=== PATIENT | female | born 1970 | race Caucasian/White ===

== ENCOUNTER 2018-08-21 23:13 | Emergency (ER) | payer OTHER ==
[2018-08-21] MEDS ORDERED: Sodium Chloride 0.9% 10 ML Syringe FLUSH PRN (23:24)
[2018-08-21] MEDS ORDERED: methylPREDNISolone Sodium Succinate 125 MG/2 ML SDV IVPUSH ONE (23:25)
[2018-08-21] MEDS ORDERED: Ketorolac 30 MG/ML SDV IVPUSH ONE (23:51)
[2018-08-21] MEDS ORDERED: diphenhydrAMINE 50 MG/ML SDV IVPUSH ONE (23:51)
[2018-08-21 23:52] LABS: CHLORIDE,CL 104 mmol/L (98-107); SODIUM,NA 141 mmol/L (136-145)
[2018-08-22] MEDS ORDERED: cefTRIAXone 1 GM in Sodium Chloride 0.9% 100 ML IV ONE (00:01)
--- NOTE | 2018-08-22 01:03 | EDM.PDOC ---
ED HPI GENERAL MEDICAL PROBLEM - General Chief Complaint: ENT Problem Stated Complaint: THROAT PAIN/SWELLING Time Seen by Provider: 08/21/18 23:47 Source of Information: Reports: Patient History Limitations: Reports: No Limitations - History of Present Illness INITIAL COMMENTS - FREE TEXT/NARRATIVE: Patient comes in with complaint of severe sore throat. Pain started gradually this morning. Sudden worsening around 6pm this evening. Took Benadryl, Ibuprofen. No known exposures to illness. Denies fevers/chills. No runny nose. Throat pain is mainly in upper throat, feels swollen, hard to swallow. Feels better sitting up. No cough. No shortness of breath/wheezing. Denies GI or changes. No other pain complaints. No dizziness/weakness/ neuro changes. Denies rash. Denies ear pain. No other complaints on ROS. 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 ED EXAM, ENT - Physical Exam Exam: See Below Exam Limited By: No Limitations General Appearance: Alert, WD/WN, No Apparent Distress Eye Exam: Bilateral Eye: EOMI, PERRL Ears: Normal External Exam, Normal Canal, Hearing Grossly Normal, Normal TMs Nose: Normal Inspection. No: Nasal Deformity, Nasal Discharge, Nasal Swelling Mouth/Throat: Normal Gums, Normal Lips, Pharyngeal Erythema, Throat Pain, Uvular Edema. No: Drooling, Hoarse Voice, Muffled Voice, Perioral Cyanosis, Tongue Swelling, Tonsillar Exudates, Tonsillar Swelling, Uvular Deviation Head: Atraumatic, Normocephalic Neck: Supple, Full Range of Motion, Other (mild discomfort with palpation under jawline bilaterally). No: Lymphadenopathy (L), Lymphadenopathy (R) Respiratory/Chest: No Respiratory Distress, Lungs Clear, Normal Breath Sounds, No Accessory Muscle Use Cardiovascular: Regular Rate, Rhythm, No Murmur GI/Abdominal: Soft, Non-Tender (Female) Exam: Deferred Rectal (Female) Exam: Deferred Extremities: Normal Inspection, Normal Capillary Refill Neurological: Alert, Oriented, CN II-XII Intact, Normal Cognition, Normal Gait, No Motor/Sensory Deficits Psychiatric: Normal Affect, Normal Mood Skin: Warm, Dry, Intact, Normal Color, No Rash Course - Vital Signs Last Recorded V/S: Last Vital Signs Temp 36.6 C 08/21/18 23:14 Pulse 80 08/22/18 02:00 Resp 16 08/22/18 02:00 BP 135/83 08/21/18 23:14 Pulse Ox 98 08/22/18 02:00 - Orders/Labs/Meds Orders: Active Orders 24 hr Category Date Time Status Peripheral IV Care [RC] . DIRECTED Care 08/21/18 23:24 Active Neck Soft Tissue [CR] Stat Exams 08/21/18 23:53 Taken CULTURE STREP A CONFIRMATION [RM] Stat Lab 08/21/18 23:38 Results STREP SCRN A RAPID W CULT CONF [RM] Stat Lab 08/21/18 23:38 Results Peripheral IV Insertion Adult [OM.PC] Routine Oth 08/21/18 23:24 Ordered Labs: Laboratory Tests 08/21/18 08/21/18 Range/Units 23:25 23:25 WBC 10.1 (4.0-10.2) K/uL RBC 4.57 (3.77-5.09) M/uL Hgb 13.5 (11.7-15.5) g/dL Hct 40.2 (34.0-46.0) % MCV 88.0 (84.0-98.0) fL MCH 29.5 (28.2-33.3) pg MCHC 33.6 (31.7-36.0) g/dL RDW 12.4 (11.2-14.1) % Plt Count 279 (150-350) K/uL Neut % (Auto) 58.2 (45.0-80.0) % Lymph % (Auto) 29.9 (10.0-50.0) % Hayes % (Auto) 9.2 (2.0-14.0) % Eos % (Auto) 2.4 (0.0-5.0) % Baso % (Auto) 0.3 (0.0-2.0) % Neut # (Auto) 5.86 (1.40-7.00) K/uL Lymph # (Auto) 3.00 (0.50-3.50) K/uL Hayes # (Auto) 0.92 (0.00-1.00) K/uL Eos # (Auto) 0.24 (0.00-0.50) K/uL Baso # (Auto) 0.03 (0.00-0.20) K/uL Sodium 141 (136-145) mmol/L Potassium 3.7 (3.5-5.1) mmol/L Chloride 104 (98-107) mmol/L Carbon Dioxide 28.2 (21.0-32.0) mmol/L BUN 12 (7-18) mg/dL Creatinine 0.85 (0.51-1.17) mg/dL Est Cr Clr Drug Dosing TNP Estimated GFR (MDRD) > 60 mL/min Glucose 113 H (74-106) mg/dL Calcium 8.8 (8.5-10.1) mg/dL Total Bilirubin 0.2 (0.2-1.0) mg/dL AST 18 (15-37) U/L ALT 27 (12-78) U/L Alkaline Phosphatase 77 (46-116) IU/L Total Protein 7.4 (6.4-8.2) g/dL Albumin 3.7 (3.4-5.0) g/dL Meds: Medications Discontinued Medications Generic Name Dose Route Start Last Admin Trade Name Freq PRN Reason Stop Dose Admin Diphenhydramine HCl 50 mg 08/21/18 23:51 08/22/18 00:04 Benadryl IVPUSH 08/21/18 23:52 50 mg ONETIME ONE Administration Sodium Chloride 1,000 mls @ 999 mls/hr 08/22/18 00:00 08/22/18 00:29 Normal Saline IV 08/22/18 01:00 999 mls/hr .BOLUS ONE Administration Ceftriaxone Sodium 1 gm/ 100 mls @ 200 mls/hr 08/22/18 00:01 08/22/18 00:29 Sodium Chloride IV 08/22/18 00:30 200 mls/hr ONETIME ONE Administration Sodium Chloride 1,000 mls @ 500 mls/hr 08/22/18 01:20 08/22/18 02:52 Normal Saline IV 08/22/18 03:19 Not Given .BOLUS ONE Ketorolac Tromethamine 30 mg 08/21/18 23:51 08/21/18 23:54 Toradol IVPUSH 08/21/18 23:52 30 mg ONETIME ONE Administration Methylprednisolone Sodium Succinate 125 mg 08/21/18 23:25 08/21/18 23:33 Solu-Medrol IVPUSH 08/21/18 23:26 125 mg ONETIME ONE Administration Sodium Chloride 10 ml 08/21/18 23:24 08/21/18 23:33 Saline Flush FLUSH 10 ml ASDIRECTED PRN Administration Keep Vein Open - Radiology Interpretation Free Text/Narrative:: Soft tissue neck xray obtained. Read by from [facility]. No significant thickening of epiglottis noted, however could not rule out mild thickening that could represent early epiglottitis. - Re-Assessments/Exams Free Text/Narrative Re-Assessment/Exam: 08/22/18 01:08 Uvulitis. Concern for concomitant early epiglottitis. Possible early changes on soft tissue neck xray of epiglottis. Negative rapid strep. IV access obtained. Patient received Solu-medrol, Toradol, IV fluid bolus. Discussed potential for epiglottitis and risks, including need for intubation, associated with it. Recommended observation admission vs potential transfer to [place]. Patient stated that she felt improved and refused admission/transfer. Would like to go home. She does appear more comfortable at this time after the above interventions. Extensive risk counseling with patient regarding worsening symptoms and signs that she should return to the ER or call EMS. Plan agreed upon at this time includes keeping IV in place after DC from ER, phone follow up at home around 0900 today, and return to the ER around noon tomorrow for additional treatment as outpatient. Anticipate additional dose of Solumedrol/IV fluids/Toradol, and Rocephin at that time. Free Text/Narrative Re-Assessment/Exam: Patient discharged from ER shortly after 2am. Feeling improved overall. Departure - Departure Time of Disposition: 02:15 Disposition: Home, Self-Care 01 Condition: Good Clinical Impression: Uvulitis - Discharge Information *PRESCRIPTION DRUG MONITORING PROGRAM REVIEWED*: Not Applicable *COPY OF PRESCRIPTION DRUG MONITORING REPORT IN PATIENT YANETH: Not Applicable Instructions: Ceftriaxone injection, Methylprednisolone Solution for Injection , Uvulitis Referrals: Myrna Estevez PA-C [Primary Care Provider] - Forms: ED Department Discharge Additional Instructions: Return to the ER or call 911 if you have worsening symptoms/difficulty breathing /unable to swallow. If things are going well, you should receive a follow up phone call from one of our nurses around 9am today (Thursday). Plan on returning to the hospital around 12-1pm to receive additional medications as an outpatient as we discussed in the ER. OK to take Tylenol or Ibuprofen for pain. You were given Tramadol tonight that also helps with pain. Take 1 tab every 6 hours as needed. Stay hydrated. Drink water/tea. - My Orders Last 24 Hours: My Active Orders 08/21/18 23:24 Peripheral IV Care [RC] . DIRECTED Peripheral IV Insertion Adult [OM.PC] Routine 08/21/18 23:38 CULTURE STREP A CONFIRMATION [RM] Stat STREP SCRN A RAPID W CULT CONF [RM] Stat 08/21/18 23:53 Neck Soft Tissue [CR] Stat - Assessment/Plan Last 24 Hours: My Active Orders 08/21/18 23:24 Peripheral IV Care [RC] . DIRECTED Peripheral IV Insertion Adult [OM.PC] Routine 08/21/18 23:38 CULTURE STREP A CONFIRMATION [RM] Stat STREP SCRN A RAPID W CULT CONF [RM] Stat 08/21/18 23:53 Neck Soft Tissue [CR] Stat
[2018-08-22] MEDS ORDERED: Sodium Chloride 0.9% 1,000 ML IV ONE ×2 (01:20)
== END 2018-08-22 00:25 | disposition home or self-care (01) ==
LOC: LL.ED 23:13
DX: K12.2 Cellulitis and abscess of mouth (principal)
CPT/HCPCS: 36415; 70360; 80053; 85025; 87081; 87430; 96361; 96365; 96375; 99284; J0696; J1200; J1885; J2930; J7030; J7050